=== PATIENT | male | born 2000 | race Two or more races ===

== ENCOUNTER 2022-10-28 01:28 | Emergency (ER) | payer SELFPAY ==
[~2022-10-28] VITALS: Ht 193 cm; Wt 9.0 kg
[2022-10-28] MEDS: ETOMIDATE (2MG/ML) 20ML VIAL IV ONE ×2 (07:52→08:14)
[2022-10-28 09:00] VITALS: BP 114/74
== END 2022-10-28 09:13 | disposition home or self-care (01) ==
LOC: EDBD 01:28 → ER 01:28
DX: S43.004A Unspecified dislocation of right shoulder joint, initial encounter (principal); W18.39XA Other fall on same level, initial encounter; Y93.89 Activity, other specified; Y92.89 Other specified places as the place of occurrence of the external cause; Y99.8 Other external cause status
CPT/HCPCS: 23650; 73020; 73030; 99152